=== PATIENT | male | born 1960 | race Caucasian/White ===

== ENCOUNTER 2017-04-23 19:15 | Observation (INO) | payer OTHER ==
[~2017-04-23] VITALS: Ht 188 cm; Wt 88.0 kg
[~2017-04-23 19:15] MED LIST: DIAZ-165 PO; HYDR-3419 PO; RIVA1TAB4 PO; TIOTCAP INH
[2017-04-23] MEDS ORDERED: SODIUM CHLORIDE 0.9% 1000ML 1,000 ML IV STA (19:49)
--- NOTE | 2017-04-23 19:53 | EMERGENCY ROOM VISIT NOTE ---
History Report prepared by Jonel: Cass Contreras Under the Supervision of: Dr. Chace Ahn M.D. First contact with patient: 19:40 Chief Complaint: RECTAL BLEEDING Stated Complaint: BLEEDING FROM RECTUM,SEVERE ABD PAIN,BLOOD STOOL Nursing Triage Summary: Patient ambulatory to triage with an upright and steady gait, states "I had an episode of bloody stool one time three weeks ago. I started having lower abdominal pain around 0800 this morning. I had two bloody stools today. I have Factor 5 and take Xarelto. I skipped my dose tonight though, because of what's going on." History of Present Illness The patient is a 56 year old male who presents to the Emergency Room with complaints of intermittent bloody stool that started earlier today. The patient rates his pain a 6/10 in severity. He notes he had one bloody stool about 3 weeks ago but has not had anymore since today. He reports he had two bloody stools today. He states he experienced pain during bowel movements. He notes he had a colonoscopy 3 years ago. The patient denies a history of ulcers. He denies any chest pain, shortness of breath, headaches, or dizziness. He note she has Factor 5 and takes Xarelto. He had a blood clot in his leg a couple of days after his back surgery a few years ago. Review of Systems See HPI for pertinent positives and negatives. A total of ten systems were reviewed and were otherwise negative. Past Medical & Surgical Medical Problems: (1) Chronic low back pain (2) DVT (deep venous thrombosis) (3) Factor V Leiden (4) jail current use of antithrombotics/antiplatelets Surgical Problems: (1) History of spinal surgery Family History Cancer Social History Smoking Status: Current Every Day Smoker Housing Status: lives with significant other Current/Historical Medications Scheduled Bupropion HCl (Bupropion HCl), 100 MG PO BID Rivaroxaban (Xarelto), 20 MG PO DAILY Tiotropium [place] (Spiriva Handihaler), 1 CAP INH DAILY Scheduled PRN Clonazepam (Klonopin), 1 MG PO DAILY PRN for Anxiety Diazepam (Valium), 5 MG PO TID PRN for SPASM Hydrocodon/Acetaminophen 5MG/300MG (Vicodin (5MG/300MG)), 1 TAB PO Q6H PRN for Pain Allergies Coded Allergies: No Known Allergies (Unverified , 2/18/18) Physical Exam Vital Signs Date Time Temp Pulse Resp B/P (MAP) Pulse Ox O2 Delivery O2 Flow Rate FiO2 04/23/17 22:08 63 18 113/72 99 Room Air 04/23/17 21:23 64 18 112/72 99 Room Air 04/23/17 20:06 64 04/23/17 20:03 Room Air 04/23/17 19:20 36.5 91 16 112/69 96 Room Air Physical Exam GENERAL: Awake, alert, well-appearing, in no distress HENT: Normocephalic, atraumatic. Oropharynx unremarkable. Dry mucus membranes. EYES: Normal conjunctiva. Sclera non-icteric. NECK: Supple. No nuchal rigidity. FROM. No JVD. RESPIRATORY: Clear to auscultation. CARDIAC: Regular rate, normal rhythm. Extremities warm and well perfused. Pulses equal. ABDOMEN: Soft, non-distended. No tenderness to palpation. No rebound or guarding. No masses. Benign. RECTAL: Deferred. MUSCULOSKELETAL: Chest examination reveals no tenderness. The back is symmetrical on inspection without obvious abnormality. There is no CVA tenderness to palpation. No joint edema. LOWER EXTREMITIES: Calves are equal size bilaterally and non-tender. No edema. No discoloration. NEURO: Normal sensorium. No sensory or motor deficits noted. SKIN: No rash or jaundice noted. Medical Decision & Procedures Laboratory Results 04/23/17 19:55 Red Blood Count 5.45, Mean Corpuscular Volume 91.0, Mean Corpuscular Hemoglobin 32.1, Mean Corpuscular Hemoglobin Concent 35.3, Mean Platelet Volume 9.1, Neutrophils (%) (Auto) 65.4, Lymphocytes (%) (Auto) 25.5, Monocytes (%) (Auto) 7.5, Eosinophils (%) (Auto) 1.1, Basophils (%) (Auto) 0.2, Neutrophils # (Auto) 8.72, Lymphocytes # (Auto) 3.40, Monocytes # (Auto) 1.00, Eosinophils # (Auto) 0.15, Basophils # (Auto) 0.02 04/23/17 19:55 Test 04/23/17 19:55 04/23/17 20:00 04/23/17 20:19 04/23/17 21:30 White Blood Count 13.33 K/uL (4.8-10.8) Red Blood Count 5.45 M/uL (4.7-6.1) Hemoglobin 17.5 g/dL (14.0-18.0) Hematocrit 49.6 % (42-52) Mean Corpuscular Volume 91.0 fL (80-100) Mean Corpuscular Hemoglobin 32.1 pg (25-34) Mean Corpuscular Hemoglobin Concent 35.3 g/dl (32-36) Platelet Count 253 K/uL (130-400) Mean Platelet Volume 9.1 fL (7.4-10.4) Neutrophils (%) (Auto) 65.4 % Lymphocytes (%) (Auto) 25.5 % Monocytes (%) (Auto) 7.5 % Eosinophils (%) (Auto) 1.1 % Basophils (%) (Auto) 0.2 % Neutrophils # (Auto) 8.72 K/uL (1.4-6.5) Lymphocytes # (Auto) 3.40 K/uL (1.2-3.4) Monocytes # (Auto) 1.00 K/uL (0.11-0.59) Eosinophils # (Auto) 0.15 K/uL (0-0.5) Basophils # (Auto) 0.02 K/uL (0-0.2) RDW Standard Deviation 43.5 fL (36.4-46.3) RDW Coefficient of Variation 13.1 % (11.5-14.5) Immature Granulocyte % (Auto) 0.3 % Immature Granulocyte # (Auto) 0.04 K/uL (0.00-0.02) Anion Gap 7.0 mmol/L (3-11) Est Creatinine Clear Calc Drug Dose 86.7 ml/min Estimated GFR () 85.3 Estimated GFR (Non- 73.6 BUN/Creatinine Ratio 15.4 (10-20) Calcium Level 8.9 mg/dl (8.5-10.1) Total Bilirubin 0.3 mg/dl (0.2-1) Direct Bilirubin mg/dl (0-0.2) Aspartate Amino Transf (AST/SGOT) 21 U/L (15-37) Alanine Aminotransferase (ALT/SGPT) 28 U/L (12-78) Alkaline Phosphatase 67 U/L (45-117) Total Protein 7.2 gm/dl (6.4-8.2) Albumin 3.7 gm/dl (3.4-5.0) Lipase 157 U/L (73-393) Chemistry Specimen Hemolysis Urine Color YELLOW Urine Appearance CLEAR (CLEAR) Urine pH 5.5 (4.5-7.5) Urine Specific [place] 1.019 (1.000-1.030) Urine Protein NEG (NEG) Urine Glucose (UA) NEG (NEG) Urine Ketones NEG (NEG) Urine Occult Blood NEG (NEG) Urine Nitrite NEG (NEG) Urine Bilirubin NEG (NEG) Urine Urobilinogen NEG (NEG) Urine Leukocyte Esterase NEG (NEG) Lactic Acid Level 1.2 mmol/L (0.4-2.0) Prothrombin Time 10.9 SECONDS (9.0-12.0) Prothromb Time International Ratio 1.0 (0.9-1.1) Activated Partial Thromboplast Time 28.4 SECONDS (21.0-31.0) Partial Thromboplastin Ratio 1.1 Laboratory results reviewed by me Medications Administered Medications (Trade) Dose Ordered Sig/Maximiliano Route Start Time Stop Time Status Last Admin Dose Admin Sodium Chloride 1,000 ml @ 999 mls/hr Q1H1M STAT IV 04/23/17 19:49 04/23/17 20:49 DC 04/23/17 20:08 999 MLS/HR ECG Per My Interpretation Indication: other (rectal bleeding) Rate (beats per minute): 67 Rhythm: normal sinus Findings: no acute ischemic change, other (normal axis) ED Course 1939: The patient was evaluated in room A2. A complete history and physical exam was performed. Medical Decision I reviewed the patient's past medical history, medications, and the nursing notes as described above. Differential Diagnoses: Diverticular bleed, polyps, malignancy, upper GI bleed. The patient is a 56-year-old gentleman with a past medical history of factor V Leiden on Xarelto who presents emergency Department with red blood per rectum 2 today in the setting of similar episode last week per hpi. Arrival the patient is in no acute distress, afebrile stable vital signs. On exam demonstrates scant red blood per rectum no active hemorrhage. H&H unremarkable. CT scan of the abdomen and pelvis without any acute findings. The patient's factor V Leiden is difficult to maintain the patient off of anticoagulation thus we'll admit the patient for further management and likely GI consultation. [facility] the patient for further management. Medication Reconcilliation Current Medication List: was personally reviewed by me Blood Pressure Screening Patient's blood pressure: Normal blood pressure Impression Primary Impression: Lower GI bleed Scribe Attestation The scribe's documentation has been prepared under my direction and personally reviewed by me in its entirety. I confirm that the note above accurately reflects all work, treatment, procedures, and medical decision making performed by me. Departure Information Referrals Nasim Ramsey D.O. (PCP) Patient Instructions My [facility]
[2017-04-23] MEDS ORDERED: OPTIRAY 320 IV PRN (20:00)
[2017-04-23 20:12] LABS: BASO % 0.2 %; BASO ABS # 0.02 K/uL (0-0.2); EOS % 1.1 %; EOS ABS # 0.15 K/uL (0-0.5); HEMATOCRIT 49.6 % (42-52); HEMOGLOBIN 17.5 g/dL (14.0-18.0); IG# 0.04 K/uL (0.00-0.02); LYMPH % 25.5 %; MEAN CORPUSCULAR HEMOGLOBIN 32.1 pg (25-34); MEAN CORPUSCULAR HGB CONC 35.3 g/dl (32-36); MEAN PLATELET VOLUME 9.1 fL (7.4-10.4); MONO % 7.5 %; NEUT % 65.4 %; NEUT ABS # 8.72 K/uL (1.4-6.5); PLATELET COUNT 253 K/uL (130-400); RED CELL DISTRIBUTION WIDTH CV 13.1 % (11.5-14.5); RED CELL DISTRIBUTION WIDTH SD 43.5 fL (36.4-46.3); WHITE BLOOD COUNT 13.33 K/uL (4.8-10.8)
[2017-04-23 20:51] LABS: ALBUMIN 3.7 gm/dl (3.4-5.0); CALCIUM 8.9 mg/dl (8.5-10.1); CREATININE 1.12 mg/dl (0.60-1.40); POTASSIUM 3.9 mmol/L (3.5-5.1); TOTAL PROTEIN 7.2 gm/dl (6.4-8.2)
[2017-04-23] MEDS ORDERED: WLL100 PO (20:55)
[2017-04-23] MEDS ORDERED: CLON1TAB3 PO (20:55)
--- NOTE | 2017-04-23 21:32 | DIAGNOSTIC IMAGING REPORT ---
ABDOMEN AND PELVIS CT WITH IV CONTRAST CT DOSE: 371.54 mGy.cm HISTORY: Generalized abdominal pain. Rectal bleeding. TECHNIQUE: Multiaxial CT images of the abdomen and pelvis were performed following the use of intravenous contrast. A dose lowering technique was utilized adhering to the principles of ALARA. COMPARISON STUDY: None. FINDINGS: Bibasilar linear densities consistent with subsegmental atelectasis. No pneumoperitoneum. No pneumatosis. No suspicious lytic or blastic osseous lesions. The liver, gallbladder, pancreas, spleen, adrenal glands, and left kidney are unremarkable. There is a 9 mm hypodense lesion within the right kidney. This is too small to characterize but a reverse a cyst. No hydronephrosis. No retroperitoneal lymphadenopathy. No pelvic free fluid. Moderate bladder wall thickening. Suboptimal evaluation for bowel pathology due to the lack of oral contrast. However, there is no definite bowel wall thickening or obstruction. A few colonic diverticula. The visualized appendix is unremarkable. IMPRESSION: 1. No bowel wall thickening or obstruction. 2. Colonic diverticulosis. 3. Bladder wall thickening. This could be due to underdistention. Recommend correlation with urinalysis to exclude a cystitis. Electronically signed by: Rian Blankenship M.D. 04/23/2017 9:31 PM Dictated Date/Time: 04/23/2017 9:24 PM
[2017-04-23 22:02] LABS: PTT PATIENT 28.4 SECONDS (21.0-31.0)
[2017-04-23 23:37] LABS: HEMATOCRIT 49.2 % (42-52); HEMOGLOBIN 17.3 g/dL (14.0-18.0)
[2017-04-24] MEDS ORDERED: DIAZEPAM 5MG TAB PO PRN (00:30)
[2017-04-24] MEDS ORDERED: PROCHLORPERAZINE INJ 5 MG in SYRINGE 4 ML IV PRN (00:30)
[2017-04-24] MEDS ORDERED: MoRPHine SULFATE 4 MG/ML 1 ML CARP\\VIAL IV PRN (00:30)
[2017-04-24] MEDS ORDERED: LORAZEPAM 2 MG/ML 1 ML VIAL IV PRN (00:30)
[2017-04-24] MEDS ORDERED: ALBUT/IPRATROP 3MG/0.5MG NEB 3 ML VIAL INH PRN (00:30)
[2017-04-24] MEDS ORDERED: ACETAMINOPHEN 325 MG TAB PO PRN (00:30)
[2017-04-24] MEDS ORDERED: CLONAZEPAM 1 MG TAB PO PRN (00:30)
[2017-04-24] MEDS ORDERED: HYDROCODONE/ACETAMIN 5/325MG TAB PO PRN (00:30)
[2017-04-24] MEDS ORDERED: IV FLUIDS COMPLETED PRN (00:30)
[2017-04-24] MEDS ORDERED: LORAZEPAM INJ 0.5 MG in SYRINGE 0.75 ML IV PRN (01:15)
[2017-04-24 01:18] VITALS: BP 118/74; PULSE 74; TEMP 36.3; O2SAT 96; Ht 188 cm; Wt 88.0 kg
--- NOTE | 2017-04-24 05:35 | HISTORY & PHYSICAL EXAMINATION ---
DATE OF ADMISSION: 04/23/2017 PRIMARY CARE PHYSICIAN: Dr. Ramsey. CHIEF COMPLAINT: Bloody stools. HISTORY OF PRESENT ILLNESS: History obtained from patient and records. Medical history significant for hypertension, COPD, ongoing tobacco abuse, hypercoagulable state (history of factor V Leiden mutation, recurrent DVTs) on Xarelto, diverticulosis, chronic back pain sp surgery. One-day history of bloody bowel movements totaling 4 episodes w achy lower abdominal cramping. No chest pain, no shortness of breath, no fever. No recent antibiotics; denies NSAID intake. Patient had one episode about 2 weeks ago, spontaneously resolving. No hematemesis, no coffee-ground emesis. Patient brought to the Emergency Room. MEDICAL HISTORY: As above. Colonoscopy in 2012 showed diverticulosis. SURGERIES: He had back surgery, hernia surgery. HOME MEDICATIONS: Home meds include bupropion, Klonopin, Valium, Vicodin, Xarelto and Spiriva. ALLERGIES: No known drug allergies. FAMILY HISTORY: Blood clots. PERSONAL AND SOCIAL HISTORY: One pack daily. No chronic intake of alcohol. Disabled. REVIEW OF SYSTEMS: As per HPI, all 10 systems reviewed, all other ROS negative. PHYSICAL EXAMINATION: VITAL SIGNS: Blood pressure was noted to be 113/72, pulse rate 64, RR 18, temperature 37 O2 sats 98RA. GENERAL: Noted pleasant, no respiratory distress. SKIN: Warm. Normal color HEENT: [place] palpebral conjunctivae, no ptosis, dry buccal mucosa. NECK: Supple, nontender. CHEST: Occasional wheeze is noted. No tenderness HEART: RRR, no murmur. ABDOMEN: Some distension, nontender. EXTREMITIES: No edema. No gross deformities, No tenderness. NEUROLOGIC: Coherent, no gross focality. LABORATORY DATA: Hemoglobin was noted to be 17.5, hematocrit 9.6, hematocrit 30.3, platelets 250. Sodium noted to be 140, potassium 3.9, chloride 104, CO2 31, BUN 70, creatinine 1.12, glucose was noted to be 77. UA was negative. DIAGNOSTIC STUDIES: CT abdomen and pelvis showed colonic diverticulosis, bladder wall thickening. ASSESSMENT: 1. LGIB With some amount of pain hx diverticulosis rule out Clostridium difficile. Patient not septic. Patient currently hemodynamically stable 2. hypercoagulable state (recurrent DVT on Xarelto, hx factor V Leiden deficiency) 3. Chronic back pain. 4. hx COPD, pulmo-status at baseline 5. Ongoing tobacco abuse PLAN: Observation GMF Stool C. difficile Serial H&H, appropriate to hold Xarelto for now GI consult RE LGIB Nicotine patch DVT prophylaxis, SCDs while Xarelto on hold. Full code. MTDD
[2017-04-24 06:07] LABS: BASO % 0.1 %; BASO ABS # 0.01 K/uL (0-0.2); EOS % 1.6 %; EOS ABS # 0.16 K/uL (0-0.5); HEMATOCRIT 45.2 % (42-52); HEMOGLOBIN 15.6 g/dL (14.0-18.0); IG# 0.03 K/uL (0.00-0.02); LYMPH % 33.8 %; LYMPH ABS # 3.42 K/uL (1.2-3.4); MEAN CELL VOLUME 91.3 fL (80-100); MEAN CORPUSCULAR HEMOGLOBIN 31.5 pg (25-34); MEAN CORPUSCULAR HGB CONC 34.5 g/dl (32-36); MEAN PLATELET VOLUME 9.5 fL (7.4-10.4); MONO % 8.1 %; MONO ABS # 0.82 K/uL (0.11-0.59); NEUT % 56.1 %; NEUT ABS # 5.67 K/uL (1.4-6.5); PLATELET COUNT 221 K/uL (130-400); RED CELL DISTRIBUTION WIDTH SD 43.3 fL (36.4-46.3); WHITE BLOOD COUNT 10.11 K/uL (4.8-10.8)
[2017-04-24 07:39] VITALS: BP 138/73; PULSE 70; TEMP 36.6; O2SAT 97
[2017-04-24] MEDS ORDERED: NICOTINE 21 MG/24 HR TDSY TD SCH (08:00)
[2017-04-24] MEDS ORDERED: TIOTROPIUM BROMIDE 5 PUFF/90 MCG INH INH SCH (08:00)
[2017-04-24 12:32] LABS: HEMATOCRIT 47.3 % (42-52)
--- NOTE | 2017-04-24 13:38 | Gastrointestinal Consultation ---
Gastrointestinal Consultation Date of Consultation: Apr 24, 2017 Attending Physician: Dr. Marcus Consulting Physician: Dr. Ortega Reason for Consultation: Rectal bleeding History of Present Illness Patient is a 56 year old male patient of Dr. Ramsey with a hx of Factor 5 Leiden mutation on Xarelto, HTN, COPD. He presented to the ED late yesterday for rectal bleeding. GI is consulted for a lower GI bleed. The pt tells us that he experienced several BMs with some blood last week, then again yesterday, two BMs with bright red blood. He denies any abdominal pain and has not had any recent illness, no dizziness or weakness. On arrival, Hb was 17 and today is 15. He has not had further bleeding today. He is awake, alert, oriented, able to ambulate in the room and tells us that he is hungry. 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 COPD 2. HTN 3. Factor 5 Leiden Mutation Past Surgical History: 1. Pt tells us he underwent colonoscopy approx 2 yrs ago. 2. Back surgery 3. Hernia surgery Family History Cancer Social History Smoking Status: Current Every Day Smoker Housing Status: lives with significant other Allergies Coded Allergies: No Known Allergies (Unverified , 04/23/17) Current Medications Home Meds and Scripts Medications Dose Route/Sig Max Daily Dose Days Date Category Klonopin (Clonazepam) 1 Mg Tab 1 Mg PO DAILY PRN 04/23/17 Reported Bupropion HCl 100 Mg Tab 100 Mg PO BID 04/23/17 Reported Vicodin (5MG/300MG) (Hydrocodon/Acetaminophen 5MG/300MG) 1 Tab Tab 1 Tab PO Q6H PRN 10/22/14 Reported Valium (Diazepam) 5 Mg Tab 5 Mg PO TID PRN 10/22/14 Reported Spiriva Handihaler (Tiotropium [place]) 18 Mcg/ Aerp 1 Cap INH DAILY 10/22/14 Reported Xarelto (Rivaroxaban) 20 Mg Tab 20 Mg PO DAILY 10/22/14 Reported Review of Systems Constitutional: No fever, No chills, No sweats, No weight loss, No weakness Eyes: No eye pain, No redness ENT: No sore throat, No trouble swallowing, No pain on swallowing Respiratory: No cough, No wheezing, No shortness of breath, No dyspnea on exertion Cardiac: No chest pain, No edema, No palpitations Abdomen: + see HPI, + GI bleeding, No pain, No nausea, No vomiting, No diarrhea , No constipation Neuro: No memory loss, No weakness, No numbness/tingling, No vertigo, No balance problems Psych: No depression symptoms, No anxiety, No insomnia Heme: No abnormal bleeding/bruising, No night sweats Endo: No excessive thirst, No excessive urination Skin: No rash, No itch, No new/changing skin lesions, No jaundice Physical Exam Date Time Temp Pulse Resp B/P (MAP) Pulse Ox O2 Delivery O2 Flow Rate FiO2 04/24/17 10:51 Room Air 04/24/17 07:39 36.6 70 20 138/73 (94) 97 Room Air 04/24/17 01:18 36.3 74 20 118/74 96 Room Air 04/24/17 00:53 68 15 115/68 98 Room Air 04/23/17 22:08 63 18 113/72 99 Room Air 04/23/17 21:23 64 18 112/72 99 Room Air 04/23/17 20:06 64 04/23/17 20:03 Room Air 04/23/17 19:20 36.5 91 16 112/69 96 Room Air General Appearance: no apparent distress Eyes: normal inspection, EOMI Neck: supple, no adenopathy, thyroid normal, no JVD Respiratory/Chest: chest non-tender, lungs clear, normal breath sounds, no accessory muscle use Cardiovascular: regular rate, rhythm, no JVD, no murmur Abdomen: normal bowel sounds, non tender, soft, no organomegaly Extremities: normal inspection, no pedal edema, normal capillary refill Neurologic/Psych: alert, normal mood/affect, oriented x 3 Skin: normal color, no jaundice, warm/dry, no rash Laboratory Results Last 24 Hours Test 04/23/17 19:55 04/23/17 20:00 04/23/17 20:19 04/23/17 21:30 White Blood Count 13.33 K/uL Red Blood Count 5.45 M/uL Hemoglobin 17.5 g/dL Hematocrit 49.6 % Mean Corpuscular Volume 91.0 fL Mean Corpuscular Hemoglobin 32.1 pg Mean Corpuscular Hemoglobin Concent 35.3 g/dl Platelet Count 253 K/uL Mean Platelet Volume 9.1 fL Neutrophils (%) (Auto) 65.4 % Lymphocytes (%) (Auto) 25.5 % Monocytes (%) (Auto) 7.5 % Eosinophils (%) (Auto) 1.1 % Basophils (%) (Auto) 0.2 % Neutrophils # (Auto) 8.72 K/uL Lymphocytes # (Auto) 3.40 K/uL Monocytes # (Auto) 1.00 K/uL Eosinophils # (Auto) 0.15 K/uL Basophils # (Auto) 0.02 K/uL RDW Standard Deviation 43.5 fL RDW Coefficient of Variation 13.1 % Immature Granulocyte % (Auto) 0.3 % Immature Granulocyte # (Auto) 0.04 K/uL Sodium Level 142 mmol/L Potassium Level 3.9 mmol/L Chloride Level 104 mmol/L Carbon Dioxide Level 31 mmol/L Anion Gap 7.0 mmol/L Blood Urea Nitrogen 17 mg/dl Creatinine 1.12 mg/dl Est Creatinine Clear Calc Drug Dose 86.7 ml/min Estimated GFR () 85.3 Estimated GFR (Non- 73.6 BUN/Creatinine Ratio 15.4 Random Glucose 77 mg/dl Calcium Level 8.9 mg/dl Magnesium Level 2.5 mg/dl Total Bilirubin 0.3 mg/dl Direct Bilirubin mg/dl Aspartate Amino Transf (AST/SGOT) 21 U/L Alanine Aminotransferase (ALT/SGPT) 28 U/L Alkaline Phosphatase 67 U/L Total Protein 7.2 gm/dl Albumin 3.7 gm/dl Lipase 157 U/L Thyroid Stimulating Hormone (TSH) 2.940 uIu/ml Chemistry Specimen Hemolysis Urine Color YELLOW Urine Appearance CLEAR Urine pH 5.5 Urine Specific [place] 1.019 Urine Protein NEG Urine Glucose (UA) NEG Urine Ketones NEG Urine Occult Blood NEG Urine Nitrite NEG Urine Bilirubin NEG Urine Urobilinogen NEG Urine Leukocyte Esterase NEG Lactic Acid Level 1.2 mmol/L Prothrombin Time 10.9 SECONDS Prothromb Time International Ratio 1.0 Activated Partial Thromboplast Time 28.4 SECONDS Partial Thromboplastin Ratio 1.1 Test 04/23/17 23:18 04/24/17 05:38 04/24/17 12:01 Hemoglobin 17.3 g/dL 15.6 g/dL 16.0 g/dL Hematocrit 49.2 % 45.2 % 47.3 % White Blood Count 10.11 K/uL Red Blood Count 4.95 M/uL Mean Corpuscular Volume 91.3 fL Mean Corpuscular Hemoglobin 31.5 pg Mean Corpuscular Hemoglobin Concent 34.5 g/dl Platelet Count 221 K/uL Mean Platelet Volume 9.5 fL Neutrophils (%) (Auto) 56.1 % Lymphocytes (%) (Auto) 33.8 % Monocytes (%) (Auto) 8.1 % Eosinophils (%) (Auto) 1.6 % Basophils (%) (Auto) 0.1 % Neutrophils # (Auto) 5.67 K/uL Lymphocytes # (Auto) 3.42 K/uL Monocytes # (Auto) 0.82 K/uL Eosinophils # (Auto) 0.16 K/uL Basophils # (Auto) 0.01 K/uL RDW Standard Deviation 43.3 fL RDW Coefficient of Variation 13.0 % Immature Granulocyte % (Auto) 0.3 % Immature Granulocyte # (Auto) 0.03 K/uL Impression Patient is a 56 year old male with rectal bleeding, diverticulosis on CT. His rectal bleeding likely represented diverticular vs. hemorrhoidal surgery. Also considered is ischemic colitis, however, CT w/o any bowel wall thickening argue against this. Plan 1. Will plan for OP colonoscopy in 6-18 weeks. 2. After no further rectal bleeding for 48 hrs, may restart Xarelto. 3. Advance to regular consistency diet. I performed a history and physical examination of the patient. I have discussed the patient's case, impression and plan with EMA Carvalho. Her note reflects my findings and plan. No signs of ongoing bleeding. Out patient colonoscopy will be arranged. Gurjit Ortega MD
--- NOTE | 2017-04-24 14:00 | Discharge Instructions ---
Discharge Instructions Date of Service Apr 24, 2017. Admission Reason for Admission: Lgi Bleed Discharge Discharge Diagnosis / Problem: LGI BLEED Discharge Goals Goal(s): Decrease discomfort, Improve function Activity Recommendations Activity Limitations: resume your previous activity . Instructions / Follow-Up Instructions / Follow-Up FOLLOWUP WITH FAMILY DOCTOR IN ONE WEEK FOLLOWUP WITH GI IN 3-4 WEEKS HOLD XARELTO FOR 2 DAYS AND THEN RESUME. Current Hospital Diet Patient's current hospital diet: Regular Diet Discharge Diet Recommended Diet: Regular Diet, AHA Diet (Heart Healthy) Pending Studies Studies pending at discharge: no Medical Emergencies . Who to Call and When: Medical Emergencies: If at any time you feel your situation is an emergency, please call 911 immediately. . Non-Emergent Contact Non-Emergency issues call your: Primary Care Provider . . "Provider Documentation" section prepared by Guru Marcus. . VTE Core Measure Inpt VTE Proph given/why not?: SCD's
[2017-04-24 14:06] VITALS: BP 138/73; PULSE 70; TEMP 36.6; O2SAT 97
--- NOTE | 2017-04-24 18:41 | Progress Note ---
Internal Med Progress Note Date of Service: Apr 24, 2017. Provider Documentation: SUBJECTIVE: ambulating fine' lower Gi bleeding stopped tolerated diet no nausea mild lower abdominal pain afebrile no sob or chest pain wants to be discharged OBJECTIVE: Vital Signs-as noted below Exam: General-alert and oriented. Not in distress ENT-normal hearing Neck-no neck masses Lungs-cta b/l no wheezing or crackles Heart-s1 and s2 heard regular rate and rhythm no murmurs Abdomen-soft bowel sounds present mild hypogastric tenderness no distension Extremities-no pedal edema no erythema Neuro-alert and awake moves extremities Lab data as noted below. ASSESSMENT & PLAN: 1. LGIB With some amount of pain hx diverticulosis bleeding stopped hb stable seen by GI and plan for colonoscopy in 6-8 weeks' tolerated diet discharged home to f/u with pcp and Gi. To hold xarelto for couple of days. 2. hypercoagulable state (recurrent DVT on Xarelto, hx factor V Leiden deficiency). To hold xarelto for couple of days for above reasons. 3. Chronic back pain. 4. hx COPD, pulmo-status at baseline 5. Ongoing tobacco abuse discharged home Vital Signs: Date Time Temp Pulse Resp B/P (MAP) Pulse Ox O2 Delivery O2 Flow Rate FiO2 04/24/17 14:06 36.6 70 20 97 Room Air 04/24/17 10:51 Room Air 04/24/17 07:39 36.6 70 20 138/73 (94) 97 Room Air 04/24/17 01:18 36.3 74 20 118/74 96 Room Air 04/24/17 00:53 68 15 115/68 98 Room Air 04/23/17 22:08 63 18 113/72 99 Room Air 04/23/17 21:23 64 18 112/72 99 Room Air 04/23/17 20:06 64 04/23/17 20:03 Room Air 04/23/17 19:20 36.5 91 16 112/69 96 Room Air Lab Results: Results Past 24 Hours Test 04/23/17 19:55 04/23/17 20:00 04/23/17 20:19 04/23/17 21:30 Range/Units White Blood Count 13.33 4.8-10.8 K/uL Red Blood Count 5.45 4.7-6.1 M/uL Hemoglobin 17.5 14.0-18.0 g/dL Hematocrit 49.6 42-52 % Mean Corpuscular Volume 91.0 80-100 fL Mean Corpuscular Hemoglobin 32.1 25-34 pg Mean Corpuscular Hemoglobin Concent 35.3 32-36 g/dl Platelet Count 253 130-400 K/uL Mean Platelet Volume 9.1 7.4-10.4 fL Neutrophils (%) (Auto) 65.4 % Lymphocytes (%) (Auto) 25.5 % Monocytes (%) (Auto) 7.5 % Eosinophils (%) (Auto) 1.1 % Basophils (%) (Auto) 0.2 % Neutrophils # (Auto) 8.72 1.4-6.5 K/uL Lymphocytes # (Auto) 3.40 1.2-3.4 K/uL Monocytes # (Auto) 1.00 0.11-0.59 K/uL Eosinophils # (Auto) 0.15 0-0.5 K/uL Basophils # (Auto) 0.02 0-0.2 K/uL RDW Standard Deviation 43.5 36.4-46.3 fL RDW Coefficient of Variation 13.1 11.5-14.5 % Immature Granulocyte % (Auto) 0.3 % Immature Granulocyte # (Auto) 0.04 0.00-0.02 K/uL Sodium Level 142 136-145 mmol/L Potassium Level 3.9 3.5-5.1 mmol/L Chloride Level 104 98-107 mmol/L Carbon Dioxide Level 31 21-32 mmol/L Anion Gap 7.0 3-11 mmol/L Blood Urea Nitrogen 17 7-18 mg/dl Creatinine 1.12 0.60-1.40 mg/dl Est Creatinine Clear Calc Drug Dose 86.7 ml/min Estimated GFR () 85.3 Estimated GFR (Non- 73.6 BUN/Creatinine Ratio 15.4 10-20 Random Glucose 77 70-99 mg/dl Calcium Level 8.9 8.5-10.1 mg/dl Magnesium Level 2.5 1.8-2.4 mg/dl Total Bilirubin 0.3 0.2-1 mg/dl Direct Bilirubin 0-0.2 mg/dl Aspartate Amino Transf (AST/SGOT) 21 15-37 U/L Alanine Aminotransferase (ALT/SGPT) 28 12-78 U/L Alkaline Phosphatase 67 45-117 U/L Total Protein 7.2 6.4-8.2 gm/dl Albumin 3.7 3.4-5.0 gm/dl Lipase 157 73-393 U/L Thyroid Stimulating Hormone (TSH) 2.940 0.300-4.500 uIu/ml Chemistry Specimen Hemolysis Urine Color YELLOW Urine Appearance CLEAR CLEAR Urine pH 5.5 4.5-7.5 Urine Specific [place] 1.019 1.000-1.030 Urine Protein NEG NEG Urine Glucose (UA) NEG NEG Urine Ketones NEG NEG Urine Occult Blood NEG NEG Urine Nitrite NEG NEG Urine Bilirubin NEG NEG Urine Urobilinogen NEG NEG Urine Leukocyte Esterase NEG NEG Lactic Acid Level 1.2 0.4-2.0 mmol/L Prothrombin Time 10.9 9.0-12.0 SECONDS Prothromb Time International Ratio 1.0 0.9-1.1 Activated Partial Thromboplast Time 28.4 21.0-31.0 SECONDS Partial Thromboplastin Ratio 1.1 Test 04/23/17 23:18 04/24/17 05:38 04/24/17 12:01 Range/Units Hemoglobin 17.3 15.6 16.0 14.0-18.0 g/dL Hematocrit 49.2 45.2 47.3 42-52 % White Blood Count 10.11 4.8-10.8 K/uL Red Blood Count 4.95 4.7-6.1 M/uL Mean Corpuscular Volume 91.3 80-100 fL Mean Corpuscular Hemoglobin 31.5 25-34 pg Mean Corpuscular Hemoglobin Concent 34.5 32-36 g/dl Platelet Count 221 130-400 K/uL Mean Platelet Volume 9.5 7.4-10.4 fL Neutrophils (%) (Auto) 56.1 % Lymphocytes (%) (Auto) 33.8 % Monocytes (%) (Auto) 8.1 % Eosinophils (%) (Auto) 1.6 % Basophils (%) (Auto) 0.1 % Neutrophils # (Auto) 5.67 1.4-6.5 K/uL Lymphocytes # (Auto) 3.42 1.2-3.4 K/uL Monocytes # (Auto) 0.82 0.11-0.59 K/uL Eosinophils # (Auto) 0.16 0-0.5 K/uL Basophils # (Auto) 0.01 0-0.2 K/uL RDW Standard Deviation 43.3 36.4-46.3 fL RDW Coefficient of Variation 13.0 11.5-14.5 % Immature Granulocyte % (Auto) 0.3 % Immature Granulocyte # (Auto) 0.03 0.00-0.02 K/uL
--- NOTE | 2017-04-24 18:50 | Discharge Summary ---
Discharge Summary Date of Service Apr 24, 2017. Discharge Summary Admission Date: Apr 23, 2017 at 23:57 Discharge Date: Apr 24, 2017 Discharge Disposition: Home Principal Diagnosis: LOWER GI BLEED Secondary Diagnoses/Problems: hypertension, COPD, ongoing tobacco abuse, hypercoagulable state (history of factor V Leiden mutation, recurrent DVTs) on Xarelto, diverticulosis, chronic back pain sp surgery. Procedures: CT ABD/PELVIS: ]1. No bowel wall thickening or obstruction. 2. Colonic diverticulosis. 3. Bladder wall thickening. This could be due to underdistention. Recommend correlation with urinalysis to exclude a cystitis. Consultations: GI Medication Reconciliation Continued Medications: Bupropion HCl (Bupropion HCl) 100 Mg Tab 100 MG PO BID Clonazepam (Klonopin) 1 Mg Tab 1 MG PO DAILY PRN for Anxiety Diazepam (Valium) 5 Mg Tab 5 MG PO TID PRN for SPASM, TAB Hydrocodon/Acetaminophen 5MG/300MG (Vicodin (5MG/300MG)) 1 Tab Tab 1 TAB PO Q6H PRN for Pain, TAB Rivaroxaban (Xarelto) 20 Mg Tab 20 MG PO DAILY, TAB Tiotropium Girard (Spiriva Handihaler) 18 Mcg/ Aerp 1 CAP INH DAILY, INHALER Admission Information HPI (per Admitting provider): History obtained from patient and records. Medical history significant for hypertension, COPD, ongoing tobacco abuse, hypercoagulable state (history of factor V Leiden mutation, recurrent DVTs) on Xarelto, diverticulosis, chronic back pain sp surgery. One-day history of bloody bowel movements totaling 4 episodes w achy lower abdominal cramping. No chest pain, no shortness of breath, no fever. No recent antibiotics; denies NSAID intake. Patient had one episode about 2 weeks ago, spontaneously resolving. No hematemesis, no coffee-ground emesis. Patient brought to the Emergency Room Physical Exam (per Admitting): VITAL SIGNS: Blood pressure was noted to be 113/72, pulse rate 64, RR 18, temperature 37 O2 sats 98RA. GENERAL: Noted pleasant, no respiratory distress. SKIN: Warm. Normal color HEENT: [place] palpebral conjunctivae, no ptosis, dry buccal mucosa. NECK: Supple, nontender. CHEST: Occasional wheeze is noted. No tenderness HEART: RRR, no murmur. ABDOMEN: Some distension, nontender. EXTREMITIES: No edema. No gross deformities, No tenderness. NEUROLOGIC: Coherent, no gross focality. Hospital Course 1. LGIB With some amount of pain hx diverticulosis bleeding stopped hb stable seen by GI and plan for colonoscopy in 6-8 weeks' tolerated diet discharged home to f/u with pcp and Gi. To hold xarelto for couple of days. 2. hypercoagulable state (recurrent DVT on Xarelto, hx factor V Leiden deficiency). To hold xarelto for couple of days for above reasons. 3. Chronic back pain. 4. hx COPD, pulmo-status at baseline 5. Ongoing tobacco abuse discharged home Total time spent on discharge = 35MINUTES This includes examination of the patient, discharge planning, medication reconciliation, and communication with other providers. Discharge Instructions Discharge Instructions Date of Service Apr 24, 2017. Admission Reason for Admission: Lgi Bleed Discharge Discharge Diagnosis / Problem: LGI BLEED Discharge Goals Goal(s): Decrease discomfort, Improve function Activity Recommendations Activity Limitations: resume your previous activity . Instructions / Follow-Up Instructions / Follow-Up FOLLOWUP WITH FAMILY DOCTOR IN ONE WEEK FOLLOWUP WITH GI IN 3-4 WEEKS HOLD XARELTO FOR 2 DAYS AND THEN RESUME. Current Hospital Diet Patient's current hospital diet: Regular Diet Discharge Diet Recommended Diet: Regular Diet, AHA Diet (Heart Healthy) Pending Studies Studies pending at discharge: no Medical Emergencies . Who to Call and When: Medical Emergencies: If at any time you feel your situation is an emergency, please call 911 immediately. . Non-Emergent Contact Non-Emergency issues call your: Primary Care Provider . . "Provider Documentation" section prepared by Guru Marcus. . VTE Core Measure Inpt VTE Proph given/why not?: SCD's
== END 2017-04-24 14:47 | disposition home or self-care (01) ==
LOC: C.EDB 19:15 → C.4E 23:57 → ENRESERV 04-24 00:18
PROVIDERS: ADMIT Internal Medicine; ATTEND Internal Medicine
DX: K92.2 Gastrointestinal hemorrhage, unspecified (principal); I10 Essential (primary) hypertension; J44.9 Chronic obstructive pulmonary disease, unspecified; F17.200 Nicotine dependence, unspecified, uncomplicated; D68.51 Activated protein C resistance; K57.30 Diverticulosis of large intestine without perforation or abscess without bleeding; Z86.718 Personal history of other venous thrombosis and embolism; Z79.02 Long term (current) use of antithrombotics/antiplatelets